=== PATIENT | female | born 1970 ===

== ENCOUNTER 2019-12-31 19:55 | Emergency (ER) | payer OTHER ==
[~2019-12-31] VITALS: Ht 175.3 cm; Wt 97.5 kg
[2019-12-31] MEDS ORDERED: ANTIVER (20:13)
== END 2019-12-31 22:27 | disposition home or self-care (01) ==
LOC: ER 19:55
DX: S13.4XXA Sprain of ligaments of cervical spine, initial encounter (principal); M62.838 Other muscle spasm; V49.88XA Car occupant (driver) (passenger) injured in other specified transport accidents, initial encounter; Y93.89 Activity, other specified; Y92.488 Other paved roadways as the place of occurrence of the external cause; Y99.8 Other external cause status

== ENCOUNTER 2021-11-06 18:03 | Emergency (ER) | payer OTHER ==
[~2021-11-06] VITALS: Ht 175.3 cm; Wt 102.1 kg
[~2021-11-06 18:03] MED LIST: ANTIVER
[2021-11-06] MEDS ORDERED: DICLOFENAC SODI75 MG PO (18:57)
[2021-11-06] MEDS ORDERED: NORFLEX100MG PO (18:57)
== END 2021-11-06 19:05 | disposition home or self-care (01) ==
LOC: ER 18:03
DX: M62.830 Muscle spasm of back (principal); Z91.013 Allergy to seafood

== ENCOUNTER 2021-11-20 09:36 | Emergency (ER) | payer OTHER ==
[~2021-11-20] VITALS: Ht 175.3 cm; Wt 102.1 kg
[~2021-11-20 09:36] MED LIST changes: +DICLOFENAC SODI75 MG PO; +NORFLEX100MG PO
[2021-11-20] MEDS ORDERED: CELEBREX200MG PO (11:46)
== END 2021-11-20 13:01 | disposition home or self-care (01) ==
LOC: ER 09:36
DX: S92.911A Unspecified fracture of right toe(s), initial encounter for closed fracture (principal); X58.XXXA Exposure to other specified factors, initial encounter; Y93.89 Activity, other specified; Y92.89 Other specified places as the place of occurrence of the external cause; Z91.013 Allergy to seafood

== ENCOUNTER 2021-12-30 22:49 | Emergency (ER) | payer OTHER ==
[~2021-12-30] VITALS: Ht 175.3 cm; Wt 97.5 kg
[~2021-12-30 22:49] MED LIST changes: +CELEBREX200MG PO
[2021-12-31] MEDS ORDERED: SILVADENE20 GM TOP (01:07)
[2021-12-31] MEDS ORDERED: DUI500 PO (01:07)
== END 2021-12-31 01:16 ==
LOC: ER 22:49
DX: T22.252A Burn of second degree of left shoulder, initial encounter (principal); T20.27XA Burn of second degree of neck, initial encounter; T22.212A Burn of second degree of left forearm, initial encounter; X10.1XXA Contact with hot food, initial encounter; Y93.89 Activity, other specified; Y92.010 Kitchen of single-family (private) house as the place of occurrence of the external cause; Z91.013 Allergy to seafood

== ENCOUNTER 2022-09-08 22:45 | Emergency (ER) | payer OTHER ==
[~2022-09-08] VITALS: Ht 177.8 cm; Wt 108.9 kg
[~2022-09-08 22:45] MED LIST changes: +DUI500 PO; +SILVADENE20 GM TOP
[2022-09-09] MEDS ORDERED: KETO10TA2 PO (05:15)
[2022-09-09] MEDS ORDERED: ORPHENADRINE C100 MG PO (05:15)
== END 2022-09-09 05:22 ==
LOC: ER 22:45
DX: S39.012A Strain of muscle, fascia and tendon of lower back, initial encounter (principal); X58.XXXA Exposure to other specified factors, initial encounter; Y93.89 Activity, other specified; Y92.89 Other specified places as the place of occurrence of the external cause; Y99.8 Other external cause status; Z91.013 Allergy to seafood

== ENCOUNTER 2022-10-24 21:58 | Emergency (ER) | payer OTHER ==
[~2022-10-24] VITALS: Ht 175.3 cm; Wt 102.1 kg
[~2022-10-24 21:58] MED LIST changes: +KETO10TA2 PO; +ORPHENADRINE C100 MG PO
== END 2022-10-25 00:01 | disposition home or self-care (01) ==
LOC: ER 21:58
DX: S90.31XA Contusion of right foot, initial encounter (principal); W18.39XA Other fall on same level, initial encounter; Y93.89 Activity, other specified; Y92.89 Other specified places as the place of occurrence of the external cause; Y99.9 Unspecified external cause status; M76.61 Achilles tendinitis, right leg; Z91.013 Allergy to seafood